=== PATIENT | female | born 1965 | race Caucasian/White ===

== ENCOUNTER 2016-05-14 13:28 | Emergency (ER) | payer OTHER ==
[2016-05-14] MEDS ORDERED: HYDROmorphONE/DILAUDID 1 MG/ML SYR IVP ONE (14:25)
[2016-05-14] MEDS ORDERED: ONDANSETRON 4 MG/2 ML VIAL IVP ONE (14:25)
[2016-05-14] MEDS ORDERED: NS 1,000 ML IV ONE (14:25)
[2016-05-14] MEDS ORDERED: HYDROmorphONE/DILAUDID 1 MG/ML SYR ONE (14:26)
--- NOTE | 2016-05-14 14:33 | EDPHY ---
H & P Time Seen by Provider: 05/14/16 13:56 HPI/ROS: CHIEF COMPLAINT: Abdominal pain and bloating HISTORY OF PRESENT ILLNESS: 51-year-old female presents to the emergency department by private vehicle complaining of right-sided abdominal pain and feeling very bloated over last 1 week. The patient has a history of a volvulus July 2015 which required surgery. She states that this feels very similar. She feels very fatigued. She has had no vomiting. She had a normal bowel movement earlier this morning. No fevers or chills. She denies chest pain or difficulty breathing. Denies any reported trauma. She is postmenopausal. No urinary symptoms. REVIEW OF SYSTEMS: Constitutional: No fever, no chills. Eyes: No double or blurry vision. ENT: No sore throat. Respiratory: No cough, no shortness of breath. Cardiac: No chest pain. Gastrointestinal: Abdominal pain as above. Genitourinary: No dysuria. Musculoskeletal: No neck or back pain. Skin: No rashes. Neurological: No headache. Past Medical/Surgical History: Abdominal surgery July 2015 for possible volvulus, open heart surgery to remove benign growth, depression, attention deficit hyperactivity disorder, hypertension, thyroidectomy Social History: Single, originally from [place] Smoking Status: Never smoked Physical Exam: General Appearance: Alert, no distress. No apparent distress. Afebrile. Eyes: Pupils equal and round. Extraocular motions are all intact. ENT: Mouth: Mucous membranes moist. Respiratory: No wheezing, rhonchi, or rales, lungs are clear to auscultation. Cardiovascular: Regular rate and rhythm. Gastrointestinal: Abdomen is soft. She has mild diffuse tenderness with palpation to the abdomen. There is no rebound, guarding or masses noted. No obvious abdominal distention noted. No CVA tenderness. Neurological: Alert and oriented x 3, cranial nerves II through XII grossly intact Skin: Warm and dry, no rashes. Musculoskeletal: Nontender to palpate along the cervical, thoracic or lumbar spine. Neck is supple. Extremities: Full range of motion and no peripheral edema. Psychiatric: Patient is oriented X 3, there is no agitation. Constitutional: Initial Vital Signs Temperature (C) 36.6 C 05/14/16 13:34 Heart Rate 90 05/14/16 13:34 Respiratory Rate 16 05/14/16 13:34 Blood Pressure 166/96 H 05/14/16 13:34 O2 Sat (%) 93 05/14/16 13:34 O2 Delivery Mode Room Air Allergies/Adverse Reactions: latex Allergy (Verified 05/14/16 13:30) Home Medications: Medication Instructions Recorded D-Amphetamine Salt Combo 02/01/16 D-Amphetamine Xr 02/01/16 FLUoxetine 02/01/16 HCTZ (*) 02/01/16 Levothyroxine 05/14/16 Medical Decision Making - Diagnostics Imaging: CT imaging of the abdomen pelvis reveals no evidence of obstruction. No evidence of volvulus. This was reported to me by Dr. Trejo. ED Course/Re-evaluation: 51-year-old female presents emergency department with abdominal pain. CT imaging of the abdomen and pelvis was ordered which revealed no evidence of bowel obstruction or recurring volvulus. Laboratory studies were unremarkable. The patient is comfortable being discharged home. She was tolerating p.o. fluids upon discharge. Differential Diagnosis: Including but not limited to bowel obstruction, volvulus, perforation, diverticulitis, constipation, urinary tract infection, pyelonephritis, - Data Points Laboratory Results: Laboratory Results 05/14/16 14:32 05/14/16 14:32 05/14/16 14:32 WBC 7.21 10^3/uL (3.80-9.50) RBC 5.13 10^6/uL (4.18-5.33) Hgb 15.5 g/dL (12.6-16.3) Hct 44.0 % (38.0-47.0) MCV 85.8 fL (81.5-99.8) MCH 30.2 pg (27.9-34.1) MCHC 35.2 g/dL (32.4-36.7) RDW 13.3 % (11.5-15.2) Plt Count 245 10^3/uL (150-400) MPV 9.9 fL (8.7-11.7) Neut % (Auto) 61.5 % (39.3-74.2) Lymph % (Auto) 27.9 % (15.0-45.0) Gordon % (Auto) 6.7 % (4.5-13.0) Eos % (Auto) 2.6 % (0.6-7.6) Baso % (Auto) 1.2 % (0.3-1.7) Nucleat RBC Rel Count 0.0 % (0.0-0.2) Absolute Neuts (auto) 4.43 10^3/uL (1.70-6.50) Absolute Lymphs (auto) 2.01 10^3/uL (1.00-3.00) Absolute Monos (auto) 0.48 10^3/uL (0.30-0.80) Absolute Eos (auto) 0.19 10^3/uL (0.03-0.40) Absolute Basos (auto) 0.09 10^3/uL (0.02-0.10) Absolute Nucleated RBC 0.00 10^3/uL (0-0.01) Immature Gran % 0.1 % (0.0-1.1) Immature Gran # 0.01 10^3/uL (0.00-0.10) Sodium 137 mEq/L (134-144) Potassium 3.6 mEq/L (3.5-5.2) Chloride 97 mEq/L (97-110) Carbon Dioxide 31 mEq/l (22-31) Anion Gap 9 mEq/L (8-16) BUN 14 mg/dL (7-23) Creatinine 0.6 mg/dL (0.6-1.0) Estimated GFR > 60 Glucose 89 mg/dL (70-100) Calcium 9.3 mg/dL (8.5-10.4) Medications Given: Discontinued Medications Hydromorphone HCl (Dilaudid) 0.5 mg IVP EDNOW ONE Stop: 05/14/16 14:26 Last Admin: 05/14/16 14:35 Dose: 0.5 mg Sodium Chloride (Ns) 1,000 mls @ 0 mls/hr IV ONCE ONE PRN Reason: Wide Open Stop: 05/14/16 14:26 Last Admin: 05/14/16 14:41 Dose: 1,000 mls Ondansetron HCl (Zofran) 4 mg IVP EDNOW ONE Stop: 05/14/16 14:26 Last Admin: 05/14/16 14:42 Dose: 4 mg Departure - Departure Disposition: Home, Routine, Self-Care Clinical Impression: Abdominal pain Qualifiers: Abdominal location: unspecified location Qualifier Code: (R10.9) Unspecified abdominal pain Condition: Good Instructions: Acute Abdominal Pain (ED) Additional Instructions: Abdominal Pain: Return to the Emergency Department immediately for increasing pain, fever, vomiting, or if not completely better in 8-12 hours. Referrals: Meaghan Garcia NP [Primary Care Provider] - As per Instructions Stephen Marcelo MD [Medical Doctor] - 2-3 days, call for appt. (General surgeon ) Stand Alone Forms: Work Excuse
[2016-05-14 14:44] LABS: % IMMATURE GRANULYOCYTES 0.1 % (0.0-1.1); ABSOLUTE IMMATURE GRANULOCYTES 0.01 10^3/uL (0.00-0.10); ADD DIFF? NO; ADD MORPH? NO; ADD SCAN? NO; ATYPICAL LYMPHOCYTE FLAG 0 (0-99); FRAGMENT RBC FLAG 10 (0-99); HEMOGLOBIN 15.5 g/dL (12.6-16.3); LEFT SHIFT FLG 0 (0-99); LIPEMIA HEMOLYSIS FLAG 90 (0-99); MEAN CELL HEMOGLOBIN 30.2 pg (27.9-34.1); MEAN CELL HEMOGLOBIN CONCENTR. 35.2 g/dL (32.4-36.7); MEAN CELL VOLUME 85.8 fL (81.5-99.8); MEAN PLATELET VOLUME 9.9 fL (8.7-11.7); PLATELET CLUMPS FLAG 10 (0-99); PLATELET COUNT 245 10^3/uL (150-400); RED BLOOD CELL COUNT 5.13 10^6/uL (4.18-5.33); RED CELL DISTRIBUTION WIDTH 13.3 % (11.5-15.2)
[2016-05-14 15:18] LABS: ANION GAP 9 mEq/L (8-16); CALCIUM 9.3 mg/dL (8.5-10.4); CARBON DIOXIDE 31 mEq/l (22-31); CHLORIDE 97 mEq/L (97-110); CREATININE 0.6 mg/dL (0.6-1.0); GLOMERULAR FILTRATION RATE > 60; GLUCOSE 89 mg/dL (70-100); POTASSIUM 3.6 mEq/L (3.5-5.2); SODIUM 137 mEq/L (134-144)
[2016-05-14] MEDS ORDERED: IOPAMIDOL (ISOVUE-300) 50 ML VIAL IV ONE (15:30)
--- NOTE | 2016-05-14 16:24 | CT ---
CT Scan of the Abdomen and Pelvis (With Contrast) 1541 hours History: Right-sided abdominal pain, previous volvulus. Technique: Axial computed tomographic images of the abdomen and pelvis were obtained, with the uneve ntful intravenous administration of 90 mL Isovue-300 contrast. No oral or rectal contrast, which tipton its the study. Dose reduction techniques were utilized. Comparison: None available. CT Abdomen Findings: Lung bases: Normal. Liver: Several benign hepatic cysts, measuring up to 3.8 cm. No solid hepatic lesions. Biliary system: The gallbladder is surgically absent, without biliary ductal dilation. Spleen: Normal. Pancreas: Normal. Adrenals: Normal. Kidneys: No obstruction or solid masses. Left kidney lower pole 2-mm nonobstructing calyceal calcul us. Abdominal Aorta: Atherosclerotic abdominal aorta, without aneurysm. Periumbilical abdominal wall hernia defect, measuring 5 cm, with small bowel loops extending through the hernia. No small bowel or colonic obstruction or volvulus. Sutures in the right colon consistent with previous partial cecal resection by patient history. Appendix surgically absent. CT Pelvis Findings: No pelvic fluid collections or adnexal masses noted. Probably right-sided uteri ne fibroid, measuring 2.5 x 2 cm. No significant adenopathy. No destructive osseous lesions. Impressions 1. Periumbilical abdominal wall hernia. 2. Previous cecal and appendix resection, without evidence of bowel obstruction or recurrent volvulu s. 3. Hepatic cysts and prior cholecystectomy, without biliary obstruction. 4. Atherosclerotic aorta, without aneurysm. 5. Right-sided uterine fibroid. 6. Nonobstructing 2-mm calculus lower pole calyx of the left kidney. No hydronephrosis. Findings and recommendations discussed with Emergency Department Physician Acquisitions Assistant, Marcia Ragland PA-C, at 1605 hours on May 14, 2016.
[2016-05-14 17:39] VITALS: BP 166/89; PULSE 90; RESP 16; TEMP 98.2; O2SAT 93
== END 2016-05-14 17:38 | disposition home or self-care (01) ==
DX: R10.84 Generalized abdominal pain (principal); I10 Essential (primary) hypertension
CPT/HCPCS: 74177; 96361; 96374; 96375; 99285; J1170; J2405; Q9967

== ENCOUNTER 2016-05-22 13:34 | Emergency (ER) | payer OTHER ==
--- NOTE | 2016-05-22 14:55 | EDPHY ---
H & P Stated Complaint: +sob & bloated her last wk not feeling better Time Seen by Provider: 05/22/16 14:54 HPI/ROS: CHIEF COMPLAINT: Ongoing abdominal pain, slight dyspnea HISTORY OF PRESENT ILLNESS: The patient presents to the ED for ongoing abdominal pain. The patient was seen in the emergency department 1 week ago. She has a history of having a volvulus requiring bowel resection over a year ago. She initially recover from the surgery and had been pain free up until approximately 2-3 weeks ago. She initially developed mild intermittent pain and then developed more significant pain prompting her visit to the ED. During her last ED visit she did have a CT scan of the abdomen pelvis which demonstrated no evidence of a perforation or obstruction. The patient was ultimately discharged home. She returns today secondary to ongoing symptoms. She reports her pain has slightly worsened over the past 2 days. She does complain of pain primarily in the right upper quadrant and right lower quadrant. She does have a prior history of appendectomy as well as cholecystectomy. REVIEW OF SYSTEMS: A comprehensive 10 point review of systems is otherwise negative aside from elements mentioned in the history of present illness. Source: Patient Exam Limitations: No limitations - Personal History LMP (Females 10-55): Post Menopausal Current Tetanus/Diphtheria Vaccine: Unsure Current Tetanus Diphtheria and Acellular Pertussis (TDAP): Unsure - Medical/Surgical History Hx Asthma: No Hx Chronic Respiratory Disease: No Hx Diabetes: No Hx Cardiac Disease: No Hx Renal Disease: No Hx Cirrhosis: No Hx Alcoholism: No Hx HIV/AIDS: No Hx Splenectomy or Spleen Trauma: No Other PMH: ABDOMINAL SURGERY FOR "TWISTED" COLON, THYROIDECTOMY, OPEN HEART SURGERY TO REMOVE BENIGN GROWTH, depression, ADHD, HTN - Social History Smoking Status: Never smoked - Physical Exam Exam: General Appearance: Alert, no distress Eyes: Pupils equal and round no pallor or injection ENT, Mouth: Mucous membranes moist Respiratory: There are no retractions, lungs are clear to auscultation Cardiovascular: Regular rate and rhythm Gastrointestinal: Tenderness to palpation in the right mid quadrant, tenderness to palpation right upper quadrant, both mild. No peritoneal sounds, normal bowel sounds Neurological: A&O, normal motor function, normal sensory exam, normal cranial nerves Skin: Warm and dry, no rashes Musculoskeletal: Neck is supple nontender Extremities: symmetrical, full range of motion Psychiatric: Patient is oriented X 3, there is no agitation Constitutional: Initial Vital Signs Temperature (C) 36.6 C 05/22/16 13:41 Heart Rate 101 H 05/22/16 13:41 Respiratory Rate 16 05/22/16 13:41 Blood Pressure 167/95 H 05/22/16 13:41 O2 Sat (%) 95 05/22/16 13:41 O2 Delivery Mode Room Air Allergies/Adverse Reactions: latex Allergy (Verified 05/14/16 13:30) Home Medications: Medication Instructions Recorded D-Amphetamine Salt Combo 02/01/16 D-Amphetamine Xr 02/01/16 FLUoxetine 02/01/16 HCTZ (*) 02/01/16 Levothyroxine 05/14/16 Medical Decision Making - Diagnostics Imaging: KUB: Nonspecific bowel gas pattern noted, no evidence of obvious nephrolithiasis. ED Course/Re-evaluation: I reviewed the results of the patient's last ED visit including the results of her CT scan summarized below: CT Scan of the Abdomen and Pelvis (With Contrast) Impressions 1. Periumbilical abdominal wall hernia. 2. Previous cecal and appendix resection, without evidence of bowel obstruction or recurrent volvulus. 3. Hepatic cysts and prior cholecystectomy, without biliary obstruction. 4. Atherosclerotic aorta, without aneurysm. 5. Right-sided uterine fibroid. 6. Nonobstructing 2-mm calculus lower pole calyx of the left kidney. No hydronephrosis. I find the patient's initial abdominal examination to be benign. The patient does have some dyspnea as well as pain in her right upper quadrant. She is not noted to be tachycardic but did have an oxygen saturation of 93% on room air at the time of my evaluation. A D-dimer has been ordered to evaluate for possible thromboembolic disease. The patient presents to the ED with several ongoing issues. 1. Is dyspnea and mild right upper quadrant pain. The patient's D-dimer is negative which I feel adequately excludes pulmonary embolism. Additionally, the patient complains of abdominal pain. She had an unremarkable CT scan 1 week ago. She has had several weeks of ongoing pain. Her laboratory studies are within normal limits aside from a urinalysis which demonstrates microscopic hematuria. The patient does have a history of a nonobstructing calculus which certainly could cause her hematuria. I do think that the patient could follow up as an outpatient with Urology for further evaluation of this condition. She has been referred to Dr. Adonay Hightower at the [facility] for follow-up of her chronic hematuria. In terms of the patient's abdominal pain. She clinically has no evidence of a perforation or obstruction. She has no evidence of an acute abdomen. She has had weeks of pain. It is certainly possible this is related to an intestinal adhesion. I do not feel the patient's CT scan needs to be repeated at this point time. The patient should follow up with our on-call communications professor for further evaluation. Differential Diagnosis: Differential diagnosis considered includes bowel perforation, obstruction, nephrolithiasis, pulmonary embolism, intestinal adhesion - Data Points Laboratory Results: Laboratory Results 05/22/16 15:17 05/22/16 15:17 05/22/16 15:17 WBC 7.49 10^3/uL (3.80-9.50) RBC 5.25 10^6/uL (4.18-5.33) Hgb 15.9 g/dL (12.6-16.3) Hct 45.2 % (38.0-47.0) MCV 86.1 fL (81.5-99.8) MCH 30.3 pg (27.9-34.1) MCHC 35.2 g/dL (32.4-36.7) RDW 13.5 % (11.5-15.2) Plt Count 216 10^3/uL (150-400) MPV 9.6 fL (8.7-11.7) Neut % (Auto) 61.3 % (39.3-74.2) Lymph % (Auto) 26.3 % (15.0-45.0) Spencer % (Auto) 8.0 % (4.5-13.0) Eos % (Auto) 2.8 % (0.6-7.6) Baso % (Auto) 1.3 % (0.3-1.7) Nucleat RBC Rel Count 0.0 % (0.0-0.2) Absolute Neuts (auto) 4.59 10^3/uL (1.70-6.50) Absolute Lymphs (auto) 1.97 10^3/uL (1.00-3.00) Absolute Monos (auto) 0.60 10^3/uL (0.30-0.80) Absolute Eos (auto) 0.21 10^3/uL (0.03-0.40) Absolute Basos (auto) 0.10 10^3/uL (0.02-0.10) Absolute Nucleated RBC 0.00 10^3/uL (0-0.01) Immature Gran % 0.3 % (0.0-1.1) Immature Gran # 0.02 10^3/uL (0.00-0.10) D-Dimer < 0.27 ug/mLFEU (0.00-0.50) Sodium 140 mEq/L (134-144) Potassium 3.4 L mEq/L (3.5-5.2) Chloride 99 mEq/L (97-110) Carbon Dioxide 31 mEq/l (22-31) Anion Gap 10 mEq/L (8-16) BUN 17 mg/dL (7-23) Creatinine 0.7 mg/dL (0.6-1.0) Estimated GFR > 60 Glucose 104 H mg/dL (70-100) Calcium 9.0 mg/dL (8.5-10.4) Total Bilirubin 0.6 mg/dL (0.1-1.4) Conjugated Bilirubin 0.4 mg/dL (0.0-0.5) Unconjugated Bilirubin 0.2 mg/dL (0.0-1.1) AST 28 IU/L (14-46) ALT 33 IU/L (9-52) Alkaline Phosphatase 145 H IU/L (38-126) Total Protein 6.7 g/dL (6.3-8.2) Albumin 4.1 g/dL (3.5-5.0) Lipase 64.0 IU/L (23-300) Urine Color LIANG Urine Appearance CLEAR Urine pH 5.0 (5.0-7.5) Ur Specific Alba 1.028 (1.002-1.030) Urine Protein 1+ H (NEGATIVE) Urine Ketones TRACE H (NEGATIVE) Urine Blood 2+ H (NEGATIVE) Urine Nitrate NEGATIVE (NEGATIVE) Urine Bilirubin NEGATIVE (NEGATIVE) Urine Urobilinogen 2.0 H EU (0.2-1.0) Ur Leukocyte Esterase NEGATIVE (NEGATIVE) Urine RBC 25-50 H /hpf (0-3) Urine WBC 1-3 /hpf (0-3) Ur Epithelial Cells TRACE /lpf (NONE-1+) Urine Bacteria TRACE H /hpf (NONE SEEN) Hyaline Casts 1-5 /lpf (0-1) Urine Mucus 2+ H /lpf (NONE-1+) Urine Glucose NEGATIVE (NEGATIVE) Medications Given: Discontinued Medications Morphine Sulfate (Morphine) 4 mg IVP EDNOW ONE Stop: 05/22/16 15:30 Last Admin: 05/22/16 15:35 Dose: 4 mg Ondansetron HCl (Zofran) 4 mg IVP EDNOW ONE Stop: 05/22/16 15:30 Last Admin: 05/22/16 15:35 Dose: 4 mg Departure - Departure Disposition: Home, Routine, Self-Care Clinical Impression: Abdominal pain Condition: Good Instructions: Abdominal Pain (ED) Additional Instructions: 1. Please schedule a follow-up appointment with a communications professor you referred to. 2. Please follow up with the urologist you have been referred to for evaluation of the microscopic blood in her urine. 3. Please return to the ED for markedly worsening symptoms or other concerns. Referrals: Meaghan Garcia NP [Primary Care Provider] - As per Instructions Param Doty MD [Medical Doctor] - As per Instructions Adonay Hightower MD [Medical Doctor] - As per Instructions
[2016-05-22] MEDS ORDERED: ONDANSETRON 4 MG/2 ML VIAL IVP ONE (15:29)
[2016-05-22 15:30] LABS: % IMMATURE GRANULYOCYTES 0.3 % (0.0-1.1); ABSOLUTE IMMATURE GRANULOCYTES 0.02 10^3/uL (0.00-0.10); ADD DIFF? NO; ADD MORPH? NO; ADD SCAN? NO; ATYPICAL LYMPHOCYTE FLAG 10 (0-99); FRAGMENT RBC FLAG 0 (0-99); HEMATOCRIT 45.2 % (38.0-47.0); HEMOGLOBIN 15.9 g/dL (12.6-16.3); LEFT SHIFT FLG 0 (0-99); LIPEMIA HEMOLYSIS FLAG 90 (0-99); MEAN CELL HEMOGLOBIN 30.3 pg (27.9-34.1); MEAN CELL HEMOGLOBIN CONCENTR. 35.2 g/dL (32.4-36.7); MEAN CELL VOLUME 86.1 fL (81.5-99.8); MEAN PLATELET VOLUME 9.6 fL (8.7-11.7); PLATELET CLUMPS FLAG 0 (0-99); PLATELET COUNT 216 10^3/uL (150-400); RED BLOOD CELL COUNT 5.25 10^6/uL (4.18-5.33); RED CELL DISTRIBUTION WIDTH 13.5 % (11.5-15.2)
[2016-05-22 15:41] LABS: ALANINE AMINOTRANSFERASE 33 IU/L (9-52); ALBUMIN 4.1 g/dL (3.5-5.0); ALKALINE PHOSPHATASE 145 IU/L (38-126); ANION GAP 10 mEq/L (8-16); ASPARTATE AMINOTRANSFERASE 28 IU/L (14-46); BILIRUBIN,TOTAL 0.6 mg/dL (0.1-1.4); BILIRUBIN-CONJUGATED 0.4 mg/dL (0.0-0.5); BILIRUBIN-UNCONJUGATED 0.2 mg/dL (0.0-1.1); CARBON DIOXIDE 31 mEq/l (22-31); CHLORIDE 99 mEq/L (97-110); CREATININE 0.7 mg/dL (0.6-1.0); GLOMERULAR FILTRATION RATE > 60; GLUCOSE 104 mg/dL (70-100); POTASSIUM 3.4 mEq/L (3.5-5.2); SODIUM 140 mEq/L (134-144); TOTAL PROTEIN 6.7 g/dL (6.3-8.2)
[2016-05-22 15:46] LABS: COLOR AMBER; LEUKOCYTE ESTERASE,URINE NEGATIVE (NEGATIVE); NITRITE,URINE NEGATIVE (NEGATIVE)
[2016-05-22 15:49] LABS: BACTERIA TRACE /hpf (NONE SEEN); MUCUS 2+ /lpf (NONE-1+); RBC,URINE 25-50 /hpf (0-3)
[2016-05-22 16:55] VITALS: RESP 18
--- NOTE | 2016-05-22 17:17 | DX ---
Supine abdomen, 2 views. HISTORY: Rule out obstruction or kidney stone. FINDINGS: Nonspecific bowel gas pattern with mild air-filled distention of bowel loops in left lower quadrant. Surgical suture is present in the right lower quadrant. Prior cholecystectomy. No abnormal calculi identified. No free air. IMPRESSION: Nonspecific bowel gas pattern with mild air-filled distention of bowel loops in left lowe r quadrant.
[2016-05-22 17:56] VITALS: BP 148/98; PULSE 68; TEMP 98.4; O2SAT 98
== END 2016-05-22 17:51 | disposition home or self-care (01) ==
DX: R10.11 Right upper quadrant pain (principal); I10 Essential (primary) hypertension; Z91.040 Latex allergy status
CPT/HCPCS: 74000; 96374; 96375; 99284; J2405

== ENCOUNTER 2017-03-30 15:35 | Emergency (ER) | payer OTHER ==
[2017-03-30 15:42] VITALS: RESP 16
--- NOTE | 2017-03-30 15:57 | EDPHY ---
H & P Time Seen by Provider: 03/30/17 15:52 HPI/ROS: CHIEF COMPLAINT: Cough, congestion. HISTORY OF PRESENT ILLNESS: This patient is a healthy 52 year old female complaining of cough and cold ongoing for one week. She has not been getting better with her usual home care and remedies. She has has sinus infections in the past, and endorses congestion and rhinorrhea. She has facial pain which is intermittent, and is exacerbated by bending over. She has a sore throat with oral intake. She endorses subjective fever and increased fatigue. She has had diarrhea since onset of symptoms. She endorses a sensation of intermittent ear fullness as well. SOB occurs with nasal congestion, not with exertion. Her housemate has similar symptoms. She has had a flu shot this year. She denies chest pain, vomiting, dysuria, or other associated symptoms. REVIEW OF SYSTEMS: A 10 point review of systems was performed and is negative with the exception of the elements mentioned in the history of present illness. Past Medical/Surgical History: 1. Thyroidectomy 2. Hypertension 3. Colon surgery 4. Open heart surgery for benign growth removal 5. Depression 6. ADHD Social History: Single. Nonsmoker. Lives in [place]. PCP: Dr. Garcia Smoking Status: Never smoked Physical Exam: General Appearance: Alert, pleasant, nontoxic-appearing Eyes: Pupils equal and round, no conjunctival pallor or injection ENT, Mouth: Small amount of cerumen in right ear, TM's normal. Mucous membranes moist, no pharyngeal erythema Neck: Normal inspection Respiratory: Lungs are clear to auscultation Cardiovascular: Regular rate and rhythm Gastrointestinal: Abdomen is soft and non-tender Neurological: A&O, nonfocal, normal gait Skin: Warm and dry, no rash Extremities: Normal inspection Psychiatric: Mood and affect normal Constitutional: Initial Vital Signs Temperature (C) 37.2 C 03/30/17 15:39 Heart Rate 90 03/30/17 15:39 Respiratory Rate 16 03/30/17 15:39 Blood Pressure 140/100 H 03/30/17 15:39 O2 Sat (%) 95 03/30/17 15:39 O2 Delivery Mode Room Air Allergies/Adverse Reactions: latex Allergy (Verified 05/14/16 13:30) Home Medications: Medication Instructions Recorded D-Amphetamine Salt Combo 02/01/16 D-Amphetamine Xr 02/01/16 FLUoxetine 02/01/16 HCTZ (*) 02/01/16 Levothyroxine 05/14/16 Medical Decision Making ED Course/Re-evaluation: 52 year old female presents with one week history of cough, congestion, and diarrhea. Exam largely unremarkable. She is afebrile. Discussed presentation of viral vs. bacterial infections. No evidence of acute sinusitis, pneumonia or otitis media. No indication for abx. I discussed precautions including high fever or worsening cough. The patient is comfortable with d/c home and outpatient followup. Differential Diagnosis: Differential diagnosis includes but is not limited to pneumonia, otitis media, peritonsillar abscess, retropharyngeal abscess, meningitis. Departure - Departure Disposition: Home, Routine, Self-Care Clinical Impression: Viral syndrome Condition: Good Instructions: Viral Syndrome (ED) Additional Instructions: 1. If you develop high fever or worsening cough, followup with your doctor or return to the ER. 2. To limit diarrhea, follow a bland diet with foods such as bananas, applesauce , rice, and toast. 3. Follow up with your primary care physician this week for further evaluation. 4. Return to the emergency department for high fever, uncontrollable vomiting or diarrhea, chest pain, shortness of breath, or other worsening of condition. Referrals: Meaghan Garcia NP [Primary Care Provider] - As per Instructions Report Scribed for: Ayah Hanks Report Scribed by: Orly Cabrera Date of Report: 03/30/17 Time of Report: 16:02 Physician Review and Approval Statement: 03/30/17 16:02 Portions of this note were transcribed by a medical oncologist. I personally performed a history, physical exam, medical decision making, and confirmed accuracy of information the transcribed note.
[2017-03-30 16:12] VITALS: BP 155/98; PULSE 92; TEMP 98.1; O2SAT 98
== END 2017-03-30 16:12 | disposition home or self-care (01) ==
DX: B34.9 Viral infection, unspecified (principal); I10 Essential (primary) hypertension; Z91.040 Latex allergy status

== ENCOUNTER → 2017-04-14 | Outpatient (CLI) | payer OTHER | LOC: BMCIMAGING 09:17 | PROVIDERS: ATTEND Family Medicine | DX: M22.2X2 Patellofemoral disorders, left knee (principal); M79.662 Pain in left lower leg; R60.9 Edema, unspecified ==

== ENCOUNTER → 2017-05-30 | Outpatient (CLI) | payer OTHER | LOC: FIMAGING 12:12 | PROVIDERS: ATTEND Orthopaedic Surgery | DX: S83.242A Other tear of medial meniscus, current injury, left knee, initial encounter (principal); M22.42 Chondromalacia patellae, left knee; M25.462 Effusion, left knee; M71.22 Synovial cyst of popliteal space [Baker], left knee ==

== ENCOUNTER 2017-09-16 12:01 | Emergency (ER) | payer OTHER ==
[2017-09-16] MEDS ORDERED: NS 1,000 ML IV ONE (12:54)
[2017-09-16] MEDS ORDERED: ONDANSETRON 4 MG/2 ML VIAL IVP ONE (12:54)
[2017-09-16] MEDS ORDERED: fentaNYL 100 MCG/2 ML INJ IVP ONE (12:54)
--- NOTE | 2017-09-16 12:54 | EDPHY ---
H & P Time Seen by Provider: 09/16/17 12:43 HPI/ROS: CHIEF COMPLAINT: Right flank pain HISTORY OF PRESENT ILLNESS: Patient is had symptoms on and off for about a month. She was seen in the office and had urine showed trace blood was put on Keflex. Her symptoms got better and over the last week and especially over the last 2 days pain is worsened. Right-sided rib flank and radiates around to the anterior abdomen. Associated with some diarrhea, nausea, and some sweating. Also with delayed urination. Symptoms moderate at this time and not worse with movement, a little bit worse with sitting up position. No rash or fever. REVIEW OF SYSTEMS: Eye: no change in vision ENT: no sore throat Cardiac: no chest pain or syncope Pulmonary: no cough or SOB Abdomen: HPI Musculoskeletal: HPI no trauma Skin: no rash Neuro: no headache Constitutional: no fever : HPI A comprehensive 10 point review of systems is otherwise negative aside from elements mentioned in the history of present illness. 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 Eyes: No scleral icterus. ENT, Mouth: Normal mucous membranes. Respiratory: Normal respiratory effort, breath sounds equal, lungs are clear to auscultation. Cardiovascular: Regular rate and rhythm. Gastrointestinal: Abdomen is soft and non tender. Bowel sounds present and no rebound or guarding, negative Bal sign. Neurological: Alert, face symmetric, normal motor and sensory in extremities. Skin: Warm and dry, no rashes. Musculoskeletal: No peripheral edema. Psychiatric: Not agitated. Emergency Department course/MDM: Fentanyl 100 mcg, Zofran 4 mg, CT scanning without IV contrast to evaluate for renal colic, urinalysis and labs. 1340: Normal CT abdomen and pelvis stable post colectomy findings and no evidence of renal colic or ureteral obstruction, Dr. Archer. No bowel obstruction or perforation. 1420: Discussed with Dr. Flaco wall regarding urine, recommends repeating but no action now. 1440: discussed urine and results with patient. More likely muscular or inflammatory, 7 Vicodin and will see her PCP later this week. Smoking Status: Never smoked Constitutional: Initial Vital Signs Temperature (C) 36.7 C 09/16/17 12:21 Heart Rate 85 09/16/17 12:21 Respiratory Rate 16 09/16/17 12:21 Blood Pressure 129/93 H 09/16/17 12:21 O2 Sat (%) 95 09/16/17 12:21 O2 Delivery Mode Room Air O2 (L/minute) 2 Allergies/Adverse Reactions: latex Allergy (Verified 05/14/16 13:30) Home Medications: Medication Instructions Recorded D-Amphetamine Xr 02/01/16 FLUoxetine 02/01/16 Levothyroxine 05/14/16 Hydrocodone/Acetaminophen [Vicodin 1 each PO HS #7 tablet 09/16/17 5-300 mg Tablet] Lisinopril 09/16/17 Medical Decision Making - Diagnostics Imaging Results: Imaging Impressions Abdomen/Pelvis CT 09/16/17 12:54 Impression: 1. No acute findings in the abdomen or pelvis. 2. Nonobstructing left nephrolithiasis. 3. Additional findings as above. Findings discussed with Dr. Boom Xie on 09/16/2017 at 13:40. Attention: This CT examination is specifically designed to evaluate patients who are clinically suspected of having acute obstructive uropathy. This examination does not use radiographic contrast, and as such, provides only a limited evaluation of the abdomen, pelvis and retroperitoneum. If there is further clinical suspicion for pathological conditions other than obstructive uropathy, a complete CT evaluation of the abdomen and pelvis utilizing intravenous and oral contrast should be considered. Imaging: Discussed imaging studies w/ transition nurse Radiologist Differential Diagnosis: Differential diagnosis considered for flank pain including but not limited to biliary or hepatic causes, musculoskeletal causes, kidney stone, pyelonephritis , shingles, and intra-abdominal causes such as diverticulitis and appendicitis. - Data Points Laboratory Results: Laboratory Results 09/16/17 12:50 09/16/17 12:50 09/16/17 09/16/17 09/16/17 12:50 12:50 12:50 WBC 7.78 10^3/uL 10^3/uL (3.80-9.50) RBC 5.17 10^6/uL 10^6/uL (4.18-5.33) Hgb 15.8 g/dL g/dL (12.6-16.3) Hct 45.6 % % (38.0-47.0) MCV 88.2 fL fL (81.5-99.8) MCH 30.6 pg pg (27.9-34.1) MCHC 34.6 g/dL g/dL (32.4-36.7) RDW 12.7 % % (11.5-15.2) Plt Count 229 10^3/uL 10^3/uL (150-400) MPV 10.0 fL fL (8.7-11.7) Neut % (Auto) 49.9 % % (39.3-74.2) Lymph % (Auto) 37.0 % % (15.0-45.0) [place] % (Auto) 10.0 % % (4.5-13.0) Eos % (Auto) 1.8 % % (0.6-7.6) Baso % (Auto) 1.0 % % (0.3-1.7) Nucleat RBC Rel Count 0.0 % % (0.0-0.2) Absolute Neuts (auto) 3.88 10^3/uL 10^3/uL (1.70-6.50) Absolute Lymphs (auto) 2.88 10^3/uL 10^3/uL (1.00-3.00) Absolute Monos (auto) 0.78 10^3/uL 10^3/uL (0.30-0.80) Absolute Eos (auto) 0.14 10^3/uL 10^3/uL (0.03-0.40) Absolute Basos (auto) 0.08 10^3/uL 10^3/uL (0.02-0.10) Absolute Nucleated RBC 0.00 10^3/uL 10^3/uL (0-0.01) Immature Gran % 0.3 % % (0.0-1.1) Immature Gran # 0.02 10^3/uL 10^3/uL (0.00-0.10) Sodium 139 mEq/L mEq/L (135-145) Potassium 3.5 mEq/L mEq/L (3.3-5.0) Chloride 97 mEq/L mEq/L (97-110) Carbon Dioxide 29 mEq/l mEq/l (22-31) Anion Gap 13 mEq/L mEq/L (8-16) BUN 19 mg/dL mg/dL (7-23) Creatinine 0.8 mg/dL mg/dL (0.6-1.0) Estimated GFR > 60 Glucose 95 mg/dL mg/dL (70-100) Calcium 8.7 mg/dL mg/dL (8.5-10.4) Total Bilirubin 0.7 mg/dL mg/dL (0.1-1.4) Conjugated Bilirubin 0.4 mg/dL mg/dL (0.0-0.5) Unconjugated Bilirubin 0.3 mg/dL mg/dL (0.0-1.1) AST 33 IU/L IU/L (14-46) ALT 33 IU/L IU/L (9-52) Alkaline Phosphatase 150 IU/L H IU/L (38-126) Total Protein 7.2 g/dL g/dL (6.3-8.2) Albumin 4.3 g/dL g/dL (3.5-5.0) Urine Color Urine Appearance Urine pH Ur Specific [place] Urine Protein Urine Ketones Urine Blood Urine Nitrate Urine Bilirubin Urine Urobilinogen Ur Leukocyte Esterase Urine RBC Urine WBC Ur Epithelial Cells Urine Bacteria Hyaline Casts Urine Mucus Urine Glucose 09/16/17 12:32 WBC RBC Hgb Hct MCV MCH MCHC RDW Plt Count MPV Neut % (Auto) Lymph % (Auto) [place] % (Auto) Eos % (Auto) Baso % (Auto) Nucleat RBC Rel Count Absolute Neuts (auto) Absolute Lymphs (auto) Absolute Monos (auto) Absolute Eos (auto) Absolute Basos (auto) Absolute Nucleated RBC Immature Gran % Immature Gran # Sodium Potassium Chloride Carbon Dioxide Anion Gap BUN Creatinine Estimated GFR Glucose Calcium Total Bilirubin Conjugated Bilirubin Unconjugated Bilirubin AST ALT Alkaline Phosphatase Total Protein Albumin Urine Color [place]ANG Urine Appearance MODERATELY TURBID Urine pH 5.0 (5.0-7.5) Ur Specific [place] 1.021 (1.002-1.030) Urine Protein 2+ H (NEGATIVE) Urine Ketones TRACE H (NEGATIVE) Urine Blood 2+ H (NEGATIVE) Urine Nitrate NEGATIVE (NEGATIVE) Urine Bilirubin POSITIVE H (NEGATIVE) Urine Urobilinogen 2.0 EU H EU (0.2-1.0) Ur Leukocyte Esterase NEGATIVE (NEGATIVE) Urine RBC 1-3 /hpf /hpf (0-3) Urine WBC 3-5 /hpf H /hpf (0-3) Ur Epithelial Cells 1+ /lpf /lpf (NONE-1+) Urine Bacteria 1+ /hpf H /hpf (NONE SEEN) Hyaline Casts >182 /lpf H /lpf (0-1) Urine Mucus 4+ /lpf H /lpf (NONE-1+) Urine Glucose NEGATIVE (NEGATIVE) Medications Given: Discontinued Medications Fentanyl (Sublimaze) 100 mcg IVP EDNOW ONE Stop: 09/16/17 12:55 Last Admin: 09/16/17 13:15 Dose: 100 mcg Sodium Chloride (Ns) 1,000 mls @ 0 mls/hr IV EDNOW ONE; Wide Open PRN Reason: Protocol Stop: 09/16/17 12:55 Last Admin: 09/16/17 13:14 Dose: 1,000 mls Ondansetron HCl (Zofran) 4 mg IVP EDNOW ONE Stop: 09/16/17 12:55 Last Admin: 09/16/17 13:15 Dose: 4 mg Departure - Departure Disposition: Home, Routine, Self-Care Clinical Impression: Acute right flank pain Condition: Good Instructions: Hydrocodone/Acetaminophen (By mouth), Flank Pain (ED) Referrals: Meaghan Garcia SITE ADMINISTRATOR [Primary Care Provider] - As per Instructions (Repeat urine later this week in the office.) Prescriptions: Hydrocodone/Acetaminophen [Vicodin 5-300 mg Tablet] 1 each PO HS #7 tablet
[2017-09-16 12:59] LABS: PLATELET COUNT 229 10^3/uL (150-400)
[2017-09-16 14:58] VITALS: BP 125/78
== END 2017-09-16 14:58 | disposition home or self-care (01) ==
DX: R10.9 Unspecified abdominal pain (principal); E86.9 Volume depletion, unspecified; I10 Essential (primary) hypertension; Z91.040 Latex allergy status
CPT/HCPCS: 74176; 96374; 96375; 99285; J2405; J3010

== ENCOUNTER 2017-09-23 12:10 | Emergency (ER) | payer OTHER ==
--- NOTE | 2017-09-23 12:54 | EDPHY ---
H & P Stated Complaint: worse abd pain Time Seen by Provider: 09/23/17 12:53 HPI/ROS: HPI: This is a 52-year-old female who presents with Chief Complaint: Worsening abdominal pain Location: Right upper quadrant and right lower quadrant Quality: Sharp, constant pain Duration: 5 weeks Signs and Symptoms: no fever, no nausea, no vomiting, no hematemesis, no blood in stool, no abdominal bloating, no diarrhea, no back pain, no urinary symptoms , no vaginal bleeding/discharge, no indigestion, no chest pain, no shortness of breath Timing: daily, worsening Severity: Moderate Context: Patient has a history of volvulus status post colon resection several years ago in [facility], ovarian cyst presents with complaints of 5 week history of daily, constant, slightly worsening right upper quadrant and right lower quadrant pain. History of appendectomy. Patient was seen here on 09/16/2017 with laboratory studies that were grossly unremarkable and CT abdomen and pelvis scan that shows stable post colectomy. No signs of obstruction or perforation. Patient reports that she believes that something is wrong and wants to be repeat imaged. Denies any urinary symptoms/fever/ vomiting/vaginal bleeding/back pain. Patient reports that she is eating without difficulty. Although she complains of a decreased appetite. She has had a bowel movement in 3-4 days. 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 CONSTITUTIONAL: Extremely well-appearing adult white female, awake and alert, no obvious distress HEENT: Atraumatic and normocephalic, PERRL, EOMI. Nares patent; no rhinorrhea; no nasal mucosal edema. Tympanic membranes clear. Oropharynx clear, no exudate and moist pink mucosa. Airway patent. No lymphadenopathy. No meningismus. Cardiovascular: Normal S1/S2, regular rate, regular rhythm, without murmur rub or gallop. PULMONARY/CHEST: Symmetrical and nontender. Clear to auscultation bilaterally. Good air movement. No accessory muscle usage. ABDOMEN: Soft, nondistended, mild right upper quadrant mild right lower quadrant tenderness, no rebound, no guarding, no peritoneal signs, no masses or organomegaly. No CVAT. EXTREMITIES: 2/2 pulses, strength 5/5, no deformities, no clubbing, no cyanosis or edema. NEUROLOGICAL: no focal neuro deficits. GCS 15. SKIN: Warm and dry, no erythema. no rash. Good capillary refill. 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, depression, ADHD, HTN - Social History Smoking Status: Never smoked Constitutional: Initial Vital Signs Temperature (C) 36.6 C 09/23/17 12:15 Heart Rate 92 09/23/17 12:15 Respiratory Rate 18 09/23/17 12:15 Blood Pressure 136/82 H 09/23/17 12:15 O2 Sat (%) 92 09/23/17 12:15 O2 Delivery Mode Room Air Allergies/Adverse Reactions: latex Allergy (Verified 09/23/17 12:15) Home Medications: Medication Instructions Recorded D-Amphetamine Xr 02/01/16 FLUoxetine 02/01/16 Levothyroxine 05/14/16 Hydrocodone/Acetaminophen [Vicodin 1 each PO HS #7 tablet 09/16/17 5-300 mg Tablet] Lisinopril 09/16/17 Dicyclomine [Bentyl 20 MG (*)] 20 mg PO QID PRN #12 tab 09/23/17 Ondansetron Odt [Zofran Odt 4 mg 4 mg PO Q4 PRN #12 tab 09/23/17 (*)] Medical Decision Making - Diagnostics Imaging Results: Imaging Impressions Abdomen Ultrasound 09/23/17 13:34 Impression: 1. Heterogeneous echotexture of the liver suggestive of hepatic steatosis. 2. Incidental cyst left lobe liver anteriorly. 3. Previous cholecystectomy. 4. Mild prominence of the common bile duct measuring 11 to 12 mm at the level of the fran without choledocholithiasis appreciated. If there is a high clinical concern for possible distal common bile duct calculus then consider MRCP as clinically directed. Findings discussed with Madison Husain PAC at 14:50 hour, 09/23/2017. ED Course/Re-evaluation: Vital signs reviewed and stable upon arrival. Given 1 L normal saline, IV Dilaudid 0.5 mg Labs, CT abdomen and pelvis scan with contrast as well as right upper quadrant ultrasound ordered per patient request Labs reviewed. No signs of leukocytosis/anemia/JEFFREY/elevated LFTs/electrolyte imbalance/pancreatitis. Chart review shows that urinalysis last time was mixed and Dr. Sam was consulted. Recommends repeating but no action required at this time. 1449: Notified by nursing that patient complaining of pain. P.o. Bentyl 20 mg given. Urinalysis is slightly improved from hematuria on 09/16/2017; however follow-up with Nephrology Called by radiologist who advised that right upper quadrant ultrasound shows stable mildly dilated common bile duct without any stones present. CT abdomen and pelvis scan shows fatty liver, no signs of obstruction, no ileus no free air no perforation no diverticulitis. No significant stool burden. 1520: Reassessed patient who reports that abdominal pain is improved. Will refer to Gastroenterology and give prescription for Bentyl. This patient was seen under the supervision of my secondary supervising physician. I evaluated care for this patient independently. Discussed this patient with Dr. Bocanegra who did not see the patient. Differential Diagnosis: Abdominal pain including but not limited to appendicitis, cholecystitis, gastritis and urinary tract infection. - Data Points Laboratory Results: Laboratory Results 09/23/17 12:27 09/23/17 12:27 09/23/17 09/23/17 09/23/17 12:27 12:27 12:27 WBC RBC Hgb Hct MCV MCH MCHC RDW Plt Count MPV Neut % (Auto) Lymph % (Auto) [place] % (Auto) Eos % (Auto) Baso % (Auto) Nucleat RBC Rel Count Absolute Neuts (auto) Absolute Lymphs (auto) Absolute Monos (auto) Absolute Eos (auto) Absolute Basos (auto) Absolute Nucleated RBC Immature Gran % Immature Gran # Sodium 139 mEq/L mEq/L (135-145) Potassium 3.5 mEq/L mEq/L (3.3-5.0) Chloride 97 mEq/L mEq/L (97-110) Carbon Dioxide 29 mEq/l mEq/l (22-31) Anion Gap 13 mEq/L mEq/L (8-16) BUN 22 mg/dL mg/dL (7-23) Creatinine 0.7 mg/dL mg/dL (0.6-1.0) Estimated GFR > 60 Glucose 122 mg/dL H mg/dL (70-100) Calcium 8.8 mg/dL mg/dL (8.5-10.4) Total Bilirubin 0.7 mg/dL mg/dL (0.1-1.4) Conjugated Bilirubin 0.4 mg/dL mg/dL (0.0-0.5) Unconjugated Bilirubin 0.3 mg/dL mg/dL (0.0-1.1) AST 29 IU/L IU/L (14-46) ALT 33 IU/L IU/L (9-52) Alkaline Phosphatase 120 IU/L IU/L (38-126) Total Protein 7.0 g/dL g/dL (6.3-8.2) Albumin 4.1 g/dL g/dL (3.5-5.0) Lipase 76 IU/L IU/L (23-300) Beta HCG, Qual NEGATIVE Urine Color YELLOW Urine Appearance HAZY Urine pH 5.0 (5.0-7.5) Ur Specific [place] 1.013 (1.002-1.030) Urine Protein NEGATIVE (NEGATIVE) Urine Ketones NEGATIVE (NEGATIVE) Urine Blood 2+ H (NEGATIVE) Urine Nitrate NEGATIVE (NEGATIVE) Urine Bilirubin NEGATIVE (NEGATIVE) Urine Urobilinogen NEGATIVE EU EU (0.2-1.0) Ur Leukocyte Esterase NEGATIVE (NEGATIVE) Urine RBC 25-50 /hpf H /hpf (0-3) Urine WBC 1-3 /hpf /hpf (0-3) Ur Epithelial Cells TRACE /lpf /lpf (NONE-1+) Urine Bacteria TRACE /hpf H /hpf (NONE SEEN) Hyaline Casts 1-5 /lpf /lpf (0-1) Urine Mucus TRACE /lpf /lpf (NONE-1+) Urine Glucose NEGATIVE (NEGATIVE) 09/23/17 12:27 WBC 7.23 10^3/uL 10^3/uL (3.80-9.50) RBC 5.20 10^6/uL 10^6/uL (4.18-5.33) Hgb 15.9 g/dL g/dL (12.6-16.3) Hct 46.1 % % (38.0-47.0) MCV 88.7 fL fL (81.5-99.8) MCH 30.6 pg pg (27.9-34.1) MCHC 34.5 g/dL g/dL (32.4-36.7) RDW 12.6 % % (11.5-15.2) Plt Count 232 10^3/uL 10^3/uL (150-400) MPV 10.2 fL fL (8.7-11.7) Neut % (Auto) 56.5 % % (39.3-74.2) Lymph % (Auto) 32.2 % % (15.0-45.0) [place] % (Auto) 7.9 % % (4.5-13.0) Eos % (Auto) 2.2 % % (0.6-7.6) Baso % (Auto) 1.1 % % (0.3-1.7) Nucleat RBC Rel Count 0.0 % % (0.0-0.2) Absolute Neuts (auto) 4.08 10^3/uL 10^3/uL (1.70-6.50) Absolute Lymphs (auto) 2.33 10^3/uL 10^3/uL (1.00-3.00) Absolute Monos (auto) 0.57 10^3/uL 10^3/uL (0.30-0.80) Absolute Eos (auto) 0.16 10^3/uL 10^3/uL (0.03-0.40) Absolute Basos (auto) 0.08 10^3/uL 10^3/uL (0.02-0.10) Absolute Nucleated RBC 0.00 10^3/uL 10^3/uL (0-0.01) Immature Gran % 0.1 % % (0.0-1.1) Immature Gran # 0.01 10^3/uL 10^3/uL (0.00-0.10) Sodium Potassium Chloride Carbon Dioxide Anion Gap BUN Creatinine Estimated GFR Glucose Calcium Total Bilirubin Conjugated Bilirubin Unconjugated Bilirubin AST ALT Alkaline Phosphatase Total Protein Albumin Lipase Beta HCG, Qual Urine Color Urine Appearance Urine pH Ur Specific [place] Urine Protein Urine Ketones Urine Blood Urine Nitrate Urine Bilirubin Urine Urobilinogen Ur Leukocyte Esterase Urine RBC Urine WBC Ur Epithelial Cells Urine Bacteria Hyaline Casts Urine Mucus Urine Glucose Medications Given: Discontinued Medications Dicyclomine HCl (Bentyl) 20 mg PO EDNOW ONE Stop: 09/23/17 14:41 Last Admin: 09/23/17 14:46 Dose: 20 mg Hydromorphone HCl (Dilaudid) 0.5 mg IVP EDNOW ONE Stop: 09/23/17 13:05 Last Admin: 09/23/17 13:20 Dose: 0.5 mg Sodium Chloride (Ns) 1,000 mls @ 0 mls/hr IV EDNOW ONE; Wide Open PRN Reason: Protocol Stop: 09/23/17 13:05 Last Admin: 09/23/17 13:19 Dose: 1,000 mls Departure - Departure Disposition: Home, Routine, Self-Care Clinical Impression: Right sided abdominal pain, Common bile duct dilatation Hematuria Qualifiers: Hematuria type: unspecified type Qualified Code(s): R31.9 - Hematuria, unspecified Condition: Good Instructions: Hematuria (ED), Abdominal Pain (ED), Chronic Abdominal Pain (ED) Additional Instructions: Consume a minimum of 8-10 glasses of water or electrolyte fluid replacement drinks that include Gatorade, Powerade, Pedialyte. Eat a bland diet for the next 48 hours and then slowly advance as tolerated. Take Zofran 1 tab every 4 hours as needed for nausea, vomiting. Take Bentyl 4 times a day as needed for GI distress. Urinalysis today shows improvement from 09/16/2017 but still persists with some blood. Recommend following up with Nephrology, Dr. Sam. You would benefit from establishing care with Gastroenterology. You have been referred to Dr. Lainez. Referrals: Yenny Ward PA [Primary Care Provider] - As per Instructions Noel Sam MD [Medical Doctor] - As per Instructions Jules Lainez MD [Medical Doctor] - As per Instructions Prescriptions: Dicyclomine [Bentyl 20 MG (*)] 20 mg PO QID PRN #12 tab PRN Reason: Gi Distress Ondansetron Odt [Zofran Odt 4 mg (*)] 4 mg PO Q4 PRN #12 tab PRN Reason: Nausea/Vomiting, Use 1st
[2017-09-23] MEDS ORDERED: HYDROmorphONE/DILAUDID 2 MG/ML INJ IVP ONE (13:04)
[2017-09-23] MEDS ORDERED: NS 1,000 ML IV ONE (13:04)
[2017-09-23 13:13] LABS: PLATELET COUNT 232 10^3/uL (150-400)
[2017-09-23] MEDS ORDERED: HYDROmorphONE/DILAUDID 1 MG/ML INJ ONE (13:17)
[2017-09-23] MEDS ORDERED: IOPAMIDOL (ISOVUE-300) 100 ML BTL ONE (13:42)
[2017-09-23] MEDS ORDERED: DICYCLOMINE 10 MG CAP PO ONE (14:40)
[2017-09-23 15:25] VITALS: BP 120/75
== END 2017-09-23 15:22 | disposition home or self-care (01) ==
DX: K83.8 Other specified diseases of biliary tract (principal); R31.9 Hematuria, unspecified; I10 Essential (primary) hypertension; E86.9 Volume depletion, unspecified; Z91.040 Latex allergy status
CPT/HCPCS: 74177; 76705; 96361; 96374; 99285; J1170; Q9967

== ENCOUNTER 2018-03-11 15:43 | Emergency (ER) | payer OTHER ==
--- NOTE | 2018-03-11 18:12 | EDPHY ---
H & P Stated Complaint: RUQ ABD PAIN/HAS HAD KIDNEY STONE IN PAST/ Time Seen by Provider: 03/11/18 18:10 HPI/ROS: HPI: This is a 53-year-old female who presents with Chief Complaint: RUQ ABD PAIN/HAS HAD KIDNEY STONE IN PAST/ Location: Right upper quadrant abdomen Quality: Pain Duration: 1-2 weeks Signs and Symptoms: no fever, + nausea, no vomiting, no hematemesis, no blood in stool, + abdominal bloating, no diarrhea, no back pain, no urinary symptoms, no vaginal bleeding/discharge, no indigestion, no chest pain, no shortness of breath Timing: Daily Severity: Moderate Context: Patient reports that she has right upper quadrant pain that is nonradiating in nature directly up underneath her right anterior ribs that is reproducible with palpation over the last 1-2 weeks. She has a history of cholecystectomy and colon resection. She reports that she feels like she has abdominal bloating. Several days ago she had a few days of nausea and loose stools but this has since resolved. 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 She had a kidney stone on the left side in September of this year seen in this emergency room by myself. She reports that she followed up with Urology and had a cystoscopy that was normal per patient. Complains of generalized fatigue. Eating and drinking without difficulty but does report decreased appetite. Patient denies any trauma, injury, heavy lifting. She is right-hand dominant. No cough, wheezing, shortness of breath, recent long distance travel. No bowel movement in 2 days. Modifying Factors: None Comment: ROS: A comprehensive 10 system review of systems is otherwise negative aside from elements mentioned in the history of present illness. 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 Denies drug use. Family history noncontributory. CONSTITUTIONAL: Extremely polite and cooperative well-appearing middle-aged white female, awake and alert, no obvious distress HEENT: Atraumatic and normocephalic, PERRL, EOMI. Nares patent; no rhinorrhea; no nasal mucosal edema. Tympanic membranes clear. Oropharynx clear, no exudate and moist pink mucosa. Airway patent. No lymphadenopathy. No meningismus. Cardiovascular: Normal S1/S2, regular rate, regular rhythm, without murmur rub or gallop. PULMONARY/CHEST: Symmetrical and right reproducible right anterior lower rib tenderness. Clear to auscultation bilaterally. Good air movement. No accessory muscle usage. ABDOMEN: Soft, nondistended, moderate right upper quadrant tenderness, no rebound, no guarding, no peritoneal signs, no masses or organomegaly. No CVAT. Hypoactive bowel sounds heard x4 quadrants. EXTREMITIES: 2/2 pulses, strength 5/5, no deformities, no clubbing, no cyanosis or edema. NEUROLOGICAL: no focal neuro deficits. GCS 15. SKIN: Warm and dry, no erythema. no rash. Good capillary refill. 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, depression, ADHD, HTN - Social History Smoking Status: Never smoked Constitutional: Initial Vital Signs Temperature (C) 36.2 C 03/11/18 15:52 Heart Rate 88 03/11/18 15:52 Respiratory Rate 18 03/11/18 15:52 Blood Pressure 147/99 H 03/11/18 15:52 O2 Sat (%) 95 03/11/18 15:52 O2 Delivery Mode Room Air Allergies/Adverse Reactions: latex Allergy (Verified 03/11/18 15:49) Home Medications: Medication Instructions Recorded D-Amphetamine Xr 02/01/16 FLUoxetine 02/01/16 Levothyroxine 05/14/16 Hydrochlorothiazide 03/11/18 Medical Decision Making - Diagnostics Imaging Results: Imaging Impressions Abdomen CT 03/11/18 18:32 Impression: 1. Constipation without bowel obstruction. 2. Prior cholecystectomy with dilated common bile duct 13 mm. Please correlate with bilirubin. 3. Hepatic cysts without definite hepatic masses or intrahepatic biliary ductal dilation. 4. No definite pancreatitis. 5. No splenomegaly. 6. Nonobstructing left nephrolithiasis. ED Course/Re-evaluation: Vital signs reviewed and stable upon arrival. IV access and laboratory studies along with CT abdomen and pelvis scan urinalysis ordered Given IV morphine 4 mg and IV Zofran 4 mg Chart review shows common bile duct dilatation of 13 mL that has been stable the last few CT scan. Patient may need an MRCP for further evaluation 1713: Labs reviewed. No signs of leukocytosis/anemia/platelet dysfunction/JEFFREY/ elevated LFTs/electrolyte imbalance/pancreatitis/VTE. Urinalysis shows trace bacteria and 2+ blood; no asiya signs of infection. 1950: Called by radiologist, Dr. Trejo, who advised that CT abdomen and pelvis scan shows stable common bile duct dilatation, no obstruction, + constipation No elevation of bilirubin with common bile duct dilatation to warrant MRCP in the emergency room. Advised push fluids, MiraLax, gastroenterology follow-up. Tolerating p. O. Prior to discharge. Denies any pain at discharge. This patient was seen under the supervision of my secondary supervising physician. I evaluated care for this patient independently. Discussed this patient with Dr. Hanks. Differential Diagnosis: Abdominal pain including but not limited to appendicitis, cholecystitis, gastritis and urinary tract infection. - Data Points Laboratory Results: Laboratory Results 03/11/18 18:26 03/11/18 18:26 03/11/18 03/11/18 03/11/18 18:49 18:49 18:26 WBC RBC Hgb Hct MCV MCH MCHC RDW Plt Count MPV Neut % (Auto) Lymph % (Auto) [place] % (Auto) Eos % (Auto) Baso % (Auto) Nucleat RBC Rel Count Absolute Neuts (auto) Absolute Lymphs (auto) Absolute Monos (auto) Absolute Eos (auto) Absolute Basos (auto) Absolute Nucleated RBC Immature Gran % Immature Gran # D-Dimer < 0.27 ug/mLFEU ug/mLFEU (0.00-0.50) Sodium 134 mEq/L L mEq/L (135-145) Potassium 3.4 mEq/L mEq/L (3.3-5.0) Chloride 94 mEq/L L mEq/L (97-110) Carbon Dioxide 31 mEq/l mEq/l (22-31) Anion Gap 9 mEq/L mEq/L (6-14) BUN 13 mg/dL mg/dL (7-23) Creatinine 0.7 mg/dL mg/dL (0.6-1.0) Estimated GFR > 60 Glucose 96 mg/dL mg/dL (70-100) Calcium 9.1 mg/dL mg/dL (8.5-10.4) Total Bilirubin 0.4 mg/dL mg/dL (0.1-1.4) Conjugated Bilirubin 0.2 mg/dL mg/dL (0.0-0.5) Unconjugated Bilirubin 0.2 mg/dL mg/dL (0.0-1.1) AST 29 IU/L IU/L (14-46) ALT 28 IU/L IU/L (9-52) Alkaline Phosphatase 141 IU/L H IU/L (38-126) Total Protein 6.9 g/dL g/dL (6.3-8.2) Albumin 4.1 g/dL g/dL (3.5-5.0) Lipase 94 IU/L IU/L (23-300) Urine Color PALE YELLOW Urine Appearance CLEAR Urine pH 6.0 (5.0-7.5) Ur Specific [place] 1.005 (1.002-1.030) Urine Protein NEGATIVE (NEGATIVE) Urine Ketones NEGATIVE (NEGATIVE) Urine Blood 2+ H (NEGATIVE) Urine Nitrate NEGATIVE (NEGATIVE) Urine Bilirubin NEGATIVE (NEGATIVE) Urine Urobilinogen NEGATIVE EU EU (0.2-1.0) Ur Leukocyte Esterase NEGATIVE (NEGATIVE) Urine RBC 1-3 /hpf /hpf (0-3) Urine WBC 0-1 /hpf /hpf (0-3) Ur Epithelial Cells TRACE /lpf /lpf (NONE-1+) Urine Bacteria TRACE /hpf H /hpf (NONE SEEN) Urine Mucus TRACE /lpf /lpf (NONE-1+) Urine Glucose NEGATIVE (NEGATIVE) 03/11/18 18:26 WBC 7.74 10^3/uL 10^3/uL (3.80-9.50) RBC 4.87 10^6/uL 10^6/uL (4.18-5.33) Hgb 14.7 g/dL g/dL (12.6-16.3) Hct 42.2 % % (38.0-47.0) MCV 86.7 fL fL (81.5-99.8) MCH 30.2 pg pg (27.9-34.1) MCHC 34.8 g/dL g/dL (32.4-36.7) RDW 12.7 % % (11.5-15.2) Plt Count 221 10^3/uL 10^3/uL (150-400) MPV 9.8 fL fL (8.7-11.7) Neut % (Auto) 48.8 % % (39.3-74.2) Lymph % (Auto) 40.1 % % (15.0-45.0) [place] % (Auto) 7.6 % % (4.5-13.0) Eos % (Auto) 2.3 % % (0.6-7.6) Baso % (Auto) 0.9 % % (0.3-1.7) Nucleat RBC Rel Count 0.0 % % (0.0-0.2) Absolute Neuts (auto) 3.78 10^3/uL 10^3/uL (1.70-6.50) Absolute Lymphs (auto) 3.10 10^3/uL H 10^3/uL (1.00-3.00) Absolute Monos (auto) 0.59 10^3/uL 10^3/uL (0.30-0.80) Absolute Eos (auto) 0.18 10^3/uL 10^3/uL (0.03-0.40) Absolute Basos (auto) 0.07 10^3/uL 10^3/uL (0.02-0.10) Absolute Nucleated RBC 0.00 10^3/uL 10^3/uL (0-0.01) Immature Gran % 0.3 % % (0.0-1.1) Immature Gran # 0.02 10^3/uL 10^3/uL (0.00-0.10) D-Dimer Sodium Potassium Chloride Carbon Dioxide Anion Gap BUN Creatinine Estimated GFR Glucose Calcium Total Bilirubin Conjugated Bilirubin Unconjugated Bilirubin AST ALT Alkaline Phosphatase Total Protein Albumin Lipase Urine Color Urine Appearance Urine pH Ur Specific [place] Urine Protein Urine Ketones Urine Blood Urine Nitrate Urine Bilirubin Urine Urobilinogen Ur Leukocyte Esterase Urine RBC Urine WBC Ur Epithelial Cells Urine Bacteria Urine Mucus Urine Glucose Medications Given: Discontinued Medications Sodium Chloride (Ns) 1,000 mls @ 0 mls/hr IV EDNOW ONE; Wide Open PRN Reason: Protocol Stop: 03/11/18 18:33 Last Admin: 03/11/18 18:34 Dose: 1,000 mls Morphine Sulfate (Morphine) 6 mg IVP EDNOW ONE Stop: 03/11/18 18:33 Last Admin: 03/11/18 18:37 Dose: 6 mg Ondansetron HCl (Zofran) 4 mg IVP EDNOW ONE Stop: 03/11/18 18:33 Last Admin: 03/11/18 18:35 Dose: 4 mg Departure - Departure Disposition: Home, Routine, Self-Care Clinical Impression: Common bile duct dilation, Constipation by delayed colonic transit Condition: Good Instructions: Constipation (ED) Additional Instructions: Consume a minimum of 8-10 glasses of water or electrolyte fluid replacement drinks that include Gatorade, Powerade, Pedialyte. Eat a bland diet for the next 48 hours and then slowly advance as tolerated. Take MiraLax daily as needed for constipation. Eat a diet high in fiber including fruits and vegetables. Follow-up with Gastroenterology to discuss constipation and dilated common bile duct and to determine if need for MRCP outpatient. Referrals: Meaghan Garcia NP [Primary Care Provider] - As per Instructions Daphney Galdamez MD [Medical Doctor] - As per Instructions
[2018-03-11] MEDS ORDERED: NS 1,000 ML IV ONE (18:32)
[2018-03-11] MEDS ORDERED: ONDANSETRON 4 MG/2 ML VIAL IVP ONE (18:32)
[2018-03-11] MEDS ORDERED: IOPAMIDOL (ISOVUE-300) 100 ML BTL ONE (18:37)
[2018-03-11 18:42] LABS: PLATELET COUNT 221 10^3/uL (150-400)
[2018-03-11 20:13] VITALS: BP 138/86
== END 2018-03-11 20:16 | disposition home or self-care (01) ==
DX: K83.8 Other specified diseases of biliary tract (principal); K59.01 Slow transit constipation; N20.0 Calculus of kidney; N28.1 Cyst of kidney, acquired; I10 Essential (primary) hypertension; F90.9 Attention-deficit hyperactivity disorder, unspecified type; F32.9 Major depressive disorder, single episode, unspecified
CPT/HCPCS: 74177; 96361; 96374; 96375; 99285; J2270; J2405; Q9967

== ENCOUNTER → 2018-07-23 | Outpatient (CLI) | payer OTHER | LOC: BMCIMAGING 13:38 | PROVIDERS: ATTEND Nurse Practitioner Adult Health | DX: Z12.31 Encounter for screening mammogram for malignant neoplasm of breast (principal); R92.2 Inconclusive mammogram ==

== ENCOUNTER 2018-08-16 11:40 | Emergency (ER) | payer BC, OTHER ==
[2018-08-16] MEDS ORDERED: ACETAMINOPHEN 325 MG TAB PO ONE (12:28)
[2018-08-16] MEDS ORDERED: NS 1,000 ML IV ONE (12:28)
[2018-08-16] MEDS ORDERED: IBUPROFEN 600 MG TAB PO ONE (12:28)
[2018-08-16] MEDS ORDERED: ONDANSETRON 4 MG/2 ML VIAL IVP ONE (12:28)
[2018-08-16 12:36] LABS: PLATELET COUNT 213 10^3/uL (150-400)
--- NOTE | 2018-08-16 12:41 | EDPHY ---
H & P Time Seen by Provider: 08/16/18 11:54 HPI/ROS: CHIEF COMPLAINT: Right-sided abdominal and back pain HISTORY OF PRESENT ILLNESS: History of multiple abdominal surgeries and nephrolithiasis presents with bloating yesterday and then pain on her right flank and right abdomen today. Associated with feeling more tired and vomiting x2 today. She is concerned about a bowel obstruction. No urinary symptoms or dysuria or hematuria, no diarrhea, no fever or chills. Pain does not radiate and is not positional in nature. REVIEW OF SYSTEMS: Eye: no change in vision ENT: no sore throat Cardiac: no chest pain or syncope Pulmonary: no cough or SOB Abdomen: HPI Musculoskeletal: HPI Skin: no rash Neuro: no headache Constitutional: no fever : no urinary symptoms A comprehensive 10 point review of systems is otherwise negative aside from elements mentioned in the history of present illness. PAST MEDICAL HISTORY: Multiple abdominal surgeries including bowel surgery in [place], appendectomy and cholecystectomy. Open-heart surgery to move a benign heart growth, depression, attention deficit hyperactivity disorder, hypertension. Social history: Nonsmoker General Appearance: Alert and conversant, cooperative. Eyes: No scleral icterus. ENT, Mouth: Normal mucous membranes. Respiratory: Normal respiratory effort, breath sounds equal, lungs are clear to auscultation. Cardiovascular: Regular rate and rhythm. Gastrointestinal: Slight right-sided abdominal tenderness without rebound or guarding. Neurological: Alert, face symmetric, normal motor and sensory in extremities. Skin: Warm and dry, no rashes. Musculoskeletal: No peripheral edema. Psychiatric: Not agitated. Emergency Department course/MDM: Patient is had several previous CT scans. Patient is concerned about bowel obstruction, prefer definitive testing with CT scanning even despite potential risks of radiation. Plan for IV fluids, nonnarcotic pain medication at her request, antiemetics, CT scanning abdomen and pelvis. 1326: CT shows constipation otherwise negative per Helg[place]. Discussed with patient, stable for DC if no further vomiting. Smoking Status: Never smoked Constitutional: Initial Vital Signs Temperature (C) 36.5 C 08/16/18 11:44 Heart Rate 82 08/16/18 11:44 Respiratory Rate 18 08/16/18 11:44 Blood Pressure 161/99 H 08/16/18 11:44 O2 Sat (%) 97 08/16/18 11:44 O2 Delivery Mode Room Air Allergies/Adverse Reactions: latex Allergy (Verified 08/16/18 11:46) Home Medications: Medication Instructions Recorded D-Amphetamine Xr 02/01/16 FLUoxetine 02/01/16 Levothyroxine 05/14/16 Hydrochlorothiazide 03/11/18 Medical Decision Making - Diagnostics Imaging Results: Imaging Impressions Abdomen CT 08/16/18 12:45 Impression: 1. No bowel obstruction or localized intraabdominal inflammatory process. No clear explanation for right lower quadrant pain. 2. Mild constipation. 3. Left nephrolithiasis and small pedunculated uterine leiomyoma are unchanged. Findings discussed with emergency department physician, Boom Xie MD on August 16, 2018 at 1:20 p.m. Imaging: Discussed imaging studies w/ soils technician Radiologist Differential Diagnosis: Differential considered including but not limited to renal colic, gastroenteritis, bowel obstruction, colitis - Data Points Laboratory Results: Laboratory Results 08/16/18 12:00 08/16/18 12:00 08/16/18 08/16/18 12:00 12:00 WBC 6.87 10^3/uL 10^3/uL (3.80-9.50) RBC 4.79 10^6/uL 10^6/uL (4.18-5.33) Hgb 14.4 g/dL g/dL (12.6-16.3) Hct 42.2 % % (38.0-47.0) MCV 88.1 fL fL (81.5-99.8) MCH 30.1 pg pg (27.9-34.1) MCHC 34.1 g/dL g/dL (32.4-36.7) RDW 13.2 % % (11.5-15.2) Plt Count 213 10^3/uL 10^3/uL (150-400) MPV 9.9 fL fL (8.7-11.7) Neut % (Auto) 59.9 % % (39.3-74.2) Lymph % (Auto) 29.3 % % (15.0-45.0) [place] % (Auto) 7.6 % % (4.5-13.0) Eos % (Auto) 1.9 % % (0.6-7.6) Baso % (Auto) 1.2 % % (0.3-1.7) Nucleat RBC Rel Count 0.0 % % (0.0-0.2) Absolute Neuts (auto) 4.12 10^3/uL 10^3/uL (1.70-6.50) Absolute Lymphs (auto) 2.01 10^3/uL 10^3/uL (1.00-3.00) Absolute Monos (auto) 0.52 10^3/uL 10^3/uL (0.30-0.80) Absolute Eos (auto) 0.13 10^3/uL 10^3/uL (0.03-0.40) Absolute Basos (auto) 0.08 10^3/uL 10^3/uL (0.02-0.10) Absolute Nucleated RBC 0.00 10^3/uL 10^3/uL (0-0.01) Immature Gran % 0.1 % % (0.0-1.1) Immature Gran # 0.01 10^3/uL 10^3/uL (0.00-0.10) Sodium 136 mEq/L mEq/L (135-145) Potassium 3.6 mEq/L mEq/L (3.5-5.2) Chloride 96 mEq/L L mEq/L (97-110) Carbon Dioxide 30 mEq/l mEq/l (22-31) Anion Gap 10 mEq/L mEq/L (6-14) BUN 13 mg/dL mg/dL (7-23) Creatinine 0.6 mg/dL mg/dL (0.6-1.0) Estimated GFR > 60 Glucose 83 mg/dL mg/dL (70-100) Calcium 9.1 mg/dL mg/dL (8.5-10.4) Medications Given: Discontinued Medications Acetaminophen (Tylenol) 650 mg PO EDNOW ONE Stop: 08/16/18 12:29 Last Admin: 08/16/18 12:35 Dose: 650 mg Sodium Chloride (Ns) 1,000 mls @ 0 mls/hr IV EDNOW ONE; Wide Open PRN Reason: Protocol Stop: 08/16/18 12:29 Last Admin: 08/16/18 12:35 Dose: 1,000 mls Ibuprofen (Motrin) 600 mg PO EDNOW ONE Stop: 08/16/18 12:29 Last Admin: 08/16/18 12:35 Dose: 600 mg Ondansetron HCl (Zofran) 4 mg IVP EDNOW ONE Stop: 08/16/18 12:29 Last Admin: 08/16/18 12:35 Dose: 4 mg Departure - Departure Disposition: Home, Routine, Self-Care Clinical Impression: Abdominal pain Qualifiers: Abdominal location: generalized Qualified Code(s): R10.84 - Generalized abdominal pain Nausea & vomiting Qualifiers: Vomiting type: unspecified Vomiting Intractability: non-intractable Qualified Code(s): R11.2 - Nausea with vomiting, unspecified Condition: Good Instructions: Acute Abdominal Pain (ED) Referrals: Meaghan Garcia NP [Primary Care Provider] - As per Instructions
[2018-08-16] MEDS ORDERED: IOPAMIDOL (ISOVUE-300) 100 ML BTL ONE (12:51)
[2018-08-16 14:03] VITALS: BP 133/80
== END 2018-08-16 14:03 | disposition home or self-care (01) ==
DX: R10.84 Generalized abdominal pain (principal); R11.2 Nausea with vomiting, unspecified; E86.9 Volume depletion, unspecified; N20.0 Calculus of kidney; D25.9 Leiomyoma of uterus, unspecified; K59.00 Constipation, unspecified
CPT/HCPCS: 96374; J2405; Q9967

== ENCOUNTER 2018-11-01 11:12 | Emergency (ER) | payer BC, OTHER | END 2018-11-01 12:15 | disposition home or self-care (01) ==